=== PATIENT | male | born 1975 | race Caucasian/White ===

== ENCOUNTER 2020-01-18 08:53 | Observation (INO) ==
[2020-01-18] MEDS ORDERED: NORMAL SALINE 1,000 ML IV ONE ×2 (09:05→10:21)
[2020-01-18] MEDS ORDERED: ONDANSETRON HCL/PF 2 MG/ML VIAL IV ONE (09:05)
[2020-01-18 09:25] LABS: Hematocrit 44.2 % (42.0-52.0); Hemoglobin 15.1 gm/dL (13.5-18.0); Mean Cell Volume 90.6 fl (78-100); Mean Corpuscular Hemoglobin 30.9 pg (27-31); Mean Corpuscular Hgb Conc 34.2 g/dl (32-36); Mean Platelet Volume 11.1 fl (8-11.3); Neutrophil # 11.7 K/mm3 (1.3-6.0); Neutrophil % 85.5 % (42-75.0); Platelet Count 176 K/mm3 (150-450); Red Blood Count 4.88 M/mm3 (4.7-6.0); White Blood Count 13.6 K/mm3 (4.0-10.5)
[2020-01-18] MEDS ORDERED: LORazepam 2 MG/ML DISP.SYRIN IV ONE (09:26)
[2020-01-18] MEDS ORDERED: LORazepam 2 MG/ML DISP.SYRIN ONE (09:27)
[2020-01-18 09:43] LABS: ALT 53 U/L (19-67); AST 27 U/L (0-48); Albumin * 4.2 gm/dl (3.4-5.0); Alkaline Phosphatase * 124 U/L (50-170); Amylase * 207 U/L (25-115); Anion Gap 16.9 mmol/L (6.8-13.8); BUN/Creatinine Ratio 11.1 (9.0-21.6); Bilirubin, Total 0.3 mg/dL (0.0-1.1); Blood Urea Nitrogen 12 mg/dL (6-23); Ca. Corrected For Albumin 8.5 mg/dL (8.4-10.2); Carbon Dioxide 20.9 mmol/L (24-32.6); Chloride 109 mmol/L (97-106); Glucose * 123 mg/dL (70-110); Lipase 1468 U/L (73-393); Potassium 3.8 mmol/L (3.4-4.6); Sodium 143 mmol/L (132-142); Total Protein 7.9 gm/dL (6.2-8.2)
[2020-01-18 09:45] LABS: Troponin I Less than 0.017 ng/mL (0.00-0.10)
--- NOTE | 2020-01-18 09:47 | ERNOTE ---
Abdominal HPI - General Chief Complaint: General Assessment Time Seen by Provider: 01/18/20 09:00 Source: patient Exam Limitations: no limitations - Immun/Allergies/Home Medications Allergies/Adverse Reactions: Allergies cyclobenzaprine [From Flexeril] Adverse Reaction (Verified 01/18/20 12:50) irritable/agitated Home Medications: HOME MEDICATIONS NK 01/18/20 [Last Taken Unknown] - History of Present Illness Narrative: Patient is coming to the ER for nausea and vomiting. He states that he has not felt well in a few days, cannot really specify what did not feel well. 2 days ago he started with nausea, vomiting, generalized abdominal pain, he states that he has vomited nonstop, denies any diarrhea. Apparently has had multiple episodes like this in the past and has been diagnosed with celiac's disease. Is not aware of having had any gluten recently. He denies any other significant. His story is very vague and changing, cannot specify how frequently has episodes, maybe twice a month. He has been living in [place] for about a year and has not sought any medical care while here. He has had recurrent symptoms for about 7 years, has been evaluated twice by specialist while living in [place]. No other past medical history nor allergies, denies any chronic medication use. Timing: constant, getting worse Associated Symptoms: Present: nausea, swelling/mass in abdomen. Absent: diarrhea-gross blood, fever/chills, shortness of breath Prior Abdominal Problems: Present: similar symptoms Prior Treatment: Absent: recently seen, currently on antibiotics Review of Systems - Review of Systems Constitutional: Present: malaise. Absent: recent illness, fever ENT: Absent: ear pain, nose congestion, nasal drainage, sore throat Respiratory: Absent: shortness of breath, cough Cardiology: Absent: chest pain Gastrointestinal/Abdominal: Present: See HPI, nausea, vomiting, abdominal pain. Absent: diarrhea Genitourinary: Absent: frequency Musculoskeletal: Present: back pain Skin: Absent: rash Neurological: Absent: headache Medical History (Last Updated 01/18/20 @ 09:20 by Cat Dickson MD) Celiac disease Surgical History: Surgical History (Last Reviewed 01/18/20 @ 11:45 by Cassie Zarate RN) Hx of appendectomy Family History: Family History (Last Updated 01/18/20 @ 16:10 by Colbi Zarate, RN) Grandmother Crohn's disease IBS (irritable bowel syndrome) Other No pertinent family history Social History: (Last Updated 01/18/20 @ 09:20 by Cat Dickson MD) Tobacco: Smoking Status: Never smoker Alcohol: alcohol intake: never Physical Exam - Physical Exam General Appearance: Present: moderate distress, anxious Respiratory: Present: no respiratory distress, normal breath sounds, no accessory muscle use, lungs clear Cardiovascular/Chest: Present: regular rate, rhythm, no murmur Gastrointestinal/Abdominal: Present: normal bowel sounds, nondistended, tenderness - throughtout, max LUQ Back Exam: Present: normal inspection Extremity Exam: Present: no edema Neurological Exam: Present: alert, oriented Skin Exam: Present: normal color, diaphoresis Progress - Results and Orders Patient's Lab Results:: I have reviewed the patient's lab results. - Vital Signs Patient's Vital Signs:: I have reviewed the patient's vital signs. Vital Signs: Vital Signs 01/18/20 08:58 Pulse Rate 70 Respiratory Rate 29 H O2 Sat by Pulse Oximetry 98 - EKG EKG #1 EKG: NSR, nonspecific ST T wave changes EKG read: Interp. by me - X-Ray X-Ray #1 X-Ray: abdomen - normal bowel gas pattern Interpretation: Interp. by me - Progress/Reassessment Chief Complaint: General Assessment Progress Note-Subjective: 01/18/20 09:27 patient resting calmly in bed, after talking to him and attempting limited abdominal exam he starts to vomit again, states that he has 'tried to avoid having people touch my belly', can't give a reason why 01/18/20 09:42 patient now admits to smoking THC 01/18/20 10:09 patient resting, no vomiting 01/18/20 10:48 patient resting, no vomiting, abdomen soft, non tender discussed test results 01/18/20 11:09 patient tried one ice chip and is vomiting again discussed admission to hospital, patient agreed 01/18/20 11:12 discussed with herminia Morales to admit for observation for intractable vomiting and possible pancreatitis Departure Clinical Impression: Cyclical vomiting Pancreatitis, acute Qualifiers: Pancreatitis type: unspecified pancreatitis type Acute pancreatitis complication: unspecified Qualified Code(s): K85.90 - Acute pancreatitis without necrosis or infection, unspecified - Departure Disposition: Still a patient Condition: Stable
[2020-01-18] MEDS ORDERED: diphenhydrAMINE HCL 50 MG/ML VIAL IV ONE (10:28)
[2020-01-18] MEDS ORDERED: ONDANSETRON HCL/PF 2 MG/ML VIAL IV PRN (11:26)
[2020-01-18] MEDS ORDERED: ACETAMINOPHEN 325 MG TABLET PO PRN (12:28)
[2020-01-18] MEDS ORDERED: LIDOCAINE HCL 50 ML VIAL IM ONE (12:39)
--- NOTE | 2020-01-18 13:40 | HP ---
Chief Complaint - Chief Complaint Date of Service: 01/18/20 Time of Service: 13:19 Chief Complaint: I have had fatigue, chills, abdominal pain, and ongoing vomiting for 1 week. History of Present Illness: 44-year-old male with no a past medical history of celiac disease was evaluated in the ER for generalized abdominal pain and recurrent non-bloody vomiting that started several days ago. Patient reports he started not feeling well last Sunday when he felt fatigued and had lack energy, on he began to vomit nonstop and developed a generalized abdominal pain. He reports his symptoms worsened on Sunday and became unbearable by Sunday. Patient then decided to come to the ER to be evaluated. Upon questioning the patient admitted to smoking marijuana for more than 5 years and says he has been struggling with the symptoms for the same length of time. He denies using any other drugs or drinking alcohol. He was diagnosed with celiac disease 8 years ago but says the symptoms feel different than a celiac flare, he also denies any recent consumption of gluten-containing foods. He denies fever but says he occasionally gets chills since becoming ill, patient also denies contact with any ill persons. Medical History (Last Reviewed 01/18/20 @ 11:45 by Cassie Zarate RN) Celiac disease Surgical History: Surgical History (Last Reviewed 01/18/20 @ 11:45 by Cassie Zarate RN) Hx of appendectomy Family History: Family History (Last Reviewed 01/18/20 @ 11:45 by Cassie Zarate RN) Other No pertinent family history Social History: (Last Reviewed 01/18/20 @ 11:45 by Cassie Zarate RN) Tobacco: Smoking Status: Never smoker Alcohol: alcohol intake: never Substance Use: substance use type: marijuana counseling given: Yes Peds Patient Hx - Developmental: No Pertinent Hx Peds Patient Hx - Medical: No Pertinent Hx Peds Patient Hx - Cardiac/Respiratory: No Pertinent Hx Peds Patient Hx - Surgical: No Surgical History Patient History - Cancer: No Hx of Cancer Review Of Systems (GEN) - Review of Systems Generalized/Overall Review: Present: Chills, Malaise, Diaphoresis, Fatigue EENTM: Present: No Symptoms Reported Respiratory: Present: No Symptoms Reported Cardiac: Present: No Symptoms Reported Abdominal: Present: Nausea, Vomiting, Abdominal Pain Genitourinary: Present: No Symptoms Reported Musculoskeletal: Present: No Symptoms Reported Neurological: Present: No Symptoms Reported Skin: Present: No Symptoms Reported Endocrine: Present: No Symptoms Reported Allergies/Adverse Reactions: Allergies Allergy/AdvReac Type Severity Reaction Status Date / Time cyclobenzaprine AdvReac irritable/a Verified 01/18/20 12:50 [From Flexeril] gitated Home Medications: HOME MEDICATIONS NK 01/18/20 [Last Taken Unknown] Exam - Exam Vital Signs: Vital Signs - Last Taken Temp 37.0 C 01/18/20 11:45 Pulse 73 01/18/20 11:45 Resp 20 01/18/20 11:45 BP 139/87 01/18/20 11:45 Pulse Ox 99 01/18/20 11:45 Constitutional: Present: Alert, Oriented x3, Cooperative, Well developed, Well nourished, No distress ENT Exam: Present: normal ENT inspection, hearing grossly normal, pharynx normal, TMs normal Eye Exam: bilateral eye: normal inspection, PERRL, EOMI Neck: Present: non-tender, full range of motion, supple, normal inspection, trachea midline Back Exam: Present: normal inspection, no CVA tenderness, no vertebral tenderness Respiratory: Present: chest non-tender, lungs clear, normal breath sounds, no respiratory distress, no accessory muscle use Cardiovascular/Chest: Present: normal peripheral pulses, regular rate, rhythm, no chest tenderness, no edema, no gallop, no JVD, no murmur, no rub Peripheral Pulses: carotid (R): 4+, carotid (L): 4+, femoral (R): 4+, femoral (L): 4+, dorsalis-pedis (R): 4+, dorsalis-pedis (L): 4+ Abdomen: Present: soft, nontender, nondistended, no rebound tenderness, no hepatospenomegaly, no masses, other - Discomfort to palpation of epigastrium, no tenderness., hypoactive /Rectal: Present: Exam deferred Extremity: Present: normal range of motion, non-tender, normal inspection, no pedal edema, no calf tenderness, normal capillary refill Skin Exam: Present: normal color, warm/dry, no cyanosis Lymphatic: Present: no adenopathy Neurologic: Present: health care facilities inspector II-XII nml as tested, normal cerebellar test, no motor/sensory deficits, alert, normal mood/affect, oriented x 3 Appearance: Present: appropriate appearance, appropriate insight, neat, no memory impairment Eye contact: Present: cooperative, good eye contact, normal speech Thoughts: Present: normal thought pattern, no apparent hallucination Diagnostic Studies: Abnormal Lab Results 01/18/20 01/18/20 Range/Units : 09:20 WBC 13.6 H (4.0-10.5) K/mm3 Immature Gran # (Auto) 0.05 H (0.000-0.0310) K/mm3 Neutrophils % 85.5 H (42-75.0) % Lymphocytes % 9.5 L (20-51) % Neutrophils # 11.7 H (1.3-6.0) K/mm3 Lymphocytes # 1.29 L (1.5-3.5) k/mm3 Sodium 143 H (132-142) mmol/L Plasma Sodium 143 H (130-142) mmol/L Chloride 109 H (97-106) mmol/L Carbon Dioxide 20.9 L (24-32.6) mmol/L Anion Gap 16.9 H (6.8-13.8) mmol/L Random Glucose 123 H (70-110) mg/dL Amylase 207 H (25-115) U/L Lipase 1468 H (73-393) U/L Laboratory Results WBC 13.6 K/mm3 (4.0-10.5) H 01/18/20 09:20 RBC 4.88 M/mm3 (4.7-6.0) 01/18/20 09:20 Hgb 15.1 gm/dL (13.5-18.0) 01/18/20 09:20 Hct 44.2 % (42.0-52.0) 01/18/20 09:20 MCV 90.6 fl (78-100) 01/18/20 09:20 MCH 30.9 pg (27-31) 01/18/20:20 MCHC 34.2 g/dl (32-36) 01/18/20 09:20 RDW 13.0 % (11.5-14.0) 01/18/20 09:20 Plt Count 176 K/mm3 (150-450) 01/18/20 09:20 MPV 11.1 fl (8-11.3) 01/18/20 09:20 Immature Gran % (Auto) 0.40 % (0.001-0.429) 01/18/20 09:20 Immature Gran # (Auto) 0.05 K/mm3 (0.000-0.0310) H 01/18/20 09:20 Neutrophils % 85.5 % (42-75.0) H 01/18/20 09:20 Lymphocytes % 9.5 % (20-51) L 01/18/20 09:20 Monocytes % 3.2 % (0.0-9) 01/18/20 09:20 Eosinophils % 1.0 % (0.0-3.0) 01/18/20 09:20 Basophils % 0.4 % (0.0-1.0) 01/18/20 09:20 Nucleated RBC % 0.0 k/mm3 (0-1) 01/18/20 09:20 Neutrophils # 11.7 K/mm3 (1.3-6.0) H 01/18/20 09:20 Lymphocytes # 1.29 k/mm3 (1.5-3.5) L 01/18/20 09:20 Monocytes # 0.4 k/mm3 (0.0-1.0) 01/18/20 09:20 Eosinophils # 0.1 k/mm3 (0.0-0.7) 01/18/20 09:20 Absolute Basophils 0.1 k/mm3 (0.0-0.1) 01/18/20 09:20 Sodium 143 mmol/L (132-142) H 01/18/20 09:20 Plasma Sodium 143 mmol/L (130-142) H 01/18/20 09:20 Potassium 3.8 mmol/L (3.4-4.6) 01/18/20 09:20 Chloride 109 mmol/L (97-106) H 01/18/20 09:20 Carbon Dioxide 20.9 mmol/L (24-32.6) L 01/18/20 09:20 Anion Gap 16.9 mmol/L (6.8-13.8) H 01/18/20 09:20 BUN 12 mg/dL (6-23) 01/18/20 09:20 Creatinine 1.08 mg/dL (0.4-1.4) 01/18/20 09:20 Est GFR (Non-Af Amer) 79 mL/min (60-130) 01/18/20 09:20 BUN/Creatinine Ratio 11.1 (9.0-21.6) 01/18/20 09:20 Random Glucose 123 mg/dL (70-110) H 01/18/20 09:20 Calcium 9.0 mg/dL (7.9-10.9) 01/18/20 09:20 Calcium Adj for Albumin 8.5 mg/dL (8.4-10.2) 01/18/20 09:20 Total Bilirubin 0.3 mg/dL (0.0-1.1) 01/18/20 09:20 AST 27 U/L (0-48) 01/18/20 09:20 ALT 53 U/L (19-67) 01/18/20 09:20 Alkaline Phosphatase 124 U/L (50-170) 01/18/20 09:20 Troponin I Less than 0.017 ng/mL (0.00-0.10) 01/18/20 09:20 C-Reactive Prot, Quant Less than 0.2 mg/dL (0.0-0.9) 01/18/20 09:20 Total Protein 7.9 gm/dL (6.2-8.2) 01/18/20 09:20 Albumin 4.2 gm/dl (3.4-5.0) 01/18/20 09:20 Amylase 207 U/L (25-115) H 01/18/20 09:20 Lipase 1468 U/L (73-393) H 01/18/20 09:20 Assessment/Plan - Narrative Narrative: Patient was evaluated and medical chart was reviewed and decision to admit for diagnosis of acute pancreatitis and cyclical vomiting was made. He was admitted to [facility] hoyt where he will be left n.p.o. and treated with aggressive IV hydration with potassium and IV antibiotics given the patient's leukocytosis and reported chills. At the moment he appears comfortable after he was treated with antiemetics and anxiolytics in the ER. He only reports mild abdominal discomfort and says he feels better than when he arrived. Patient's labs on admission demonstrated elevated sodium and chloride most likely due to dehydration secondary to recurrent vomiting, this should improve with IV hydration. He was also found to have a significantly elevated lipase and amylase, follow-up lab was ordered for tomorrow morning to reevaluate. After the patient arrived to his room he admitted to smoking marijuana his whole life and concede that the cyclical vomiting might be related to the extensive marijuana use. He was counseled on refraining from smoking marijuana to prevent recurrence of the symptoms and other complications, he said he will try to stop. We will reevaluate him in the morning. - Assessment/Plan (1) Dehydration with hypernatremia Problem: Acute (2) Pancreatitis, acute Problem: Acute Qualifiers: Pancreatitis type: unspecified pancreatitis type Acute pancreatitis complication: unspecified Qualified Code(s): K85.90 - Acute pancreatitis without necrosis or infection, unspecified (3) Cyclical vomiting Problem: Acute (4) Marijuana smoker, continuous Problem: Chronic
[2020-01-18] MEDS: PANTOPRAZOLE SODIUM 40 MG in NORMAL SALINE 100 ML IV SCH (13:43)
[2020-01-18] MEDS: POTASSIUM CHLORIDE 20 MEQ in NORMAL SALINE 1,000 ML IV SCH ×2 (15:48→20:57)
[2020-01-18 17:38] LABS: Urine Appearance Clear (CLEAR); Urine Bilirubin Negative (NEGATIVE); Urine Blood Negative /ul (NEGATIVE); Urine Color Yellow; Urine Ketone Negative (NEGATIVE); Urine Nitrite Negative (NEGATIVE); Urine Protein Negative (NEGATIVE); Urine Urobilinogen Normal (NORMAL)
[2020-01-18 17:39] LABS: Urine Bacteria None Seen; Urine RBC 0-5 /hpf (0-5); Urine WBC 0-5 /hpf (0-5)
[2020-01-18 17:47] LABS: Cocaine Ur Negative (NEGATIVE); Urine Barbiturate Negative (NEGATIVE); Urine Benzodiazepines Negative (NEGATIVE); Urine Opiates Negative (NEGATIVE); Urine PCP Negative (NEGATIVE)
[2020-01-18 17:50] LABS: Urine THC Positive (NEGATIVE)
[2020-01-19] MEDS: PANTOPRAZOLE SODIUM 40 MG in NORMAL SALINE 100 ML IV SCH (00:27)
[2020-01-19] MEDS: POTASSIUM CHLORIDE 20 MEQ in NORMAL SALINE 1,000 ML IV SCH ×2 (02:05→07:18)
[2020-01-19 07:53] LABS: Albumin * 3.4 gm/dl (3.4-5.0); Anion Gap 10.4 mmol/L (6.8-13.8); BUN/Creatinine Ratio 7.6 (9.0-21.6); Bilirubin, Total 0.6 mg/dL (0.0-1.1); Ca. Corrected For Albumin 8.5 mg/dL (8.4-10.2); Calcium * 8.3 mg/dL (7.9-10.9); Carbon Dioxide 23.5 mmol/L (24-32.6); Potassium 3.9 mmol/L (3.4-4.6); Total Protein 6.7 gm/dL (6.2-8.2)
[2020-01-19] MEDS ORDERED: amLODIPine BESYLATE 5 MG TABLET PO ONE (11:22)
--- NOTE | 2020-01-19 11:31 | DS ---
(1) Dehydration with hypernatremia Problem: Resolved (2) Pancreatitis, acute Problem: Resolved Qualifiers: Pancreatitis type: unspecified pancreatitis type Acute pancreatitis complication: unspecified Qualified Code(s): K85.90 - Acute pancreatitis without necrosis or infection, unspecified (3) Cyclical vomiting Problem: Resolved (4) Marijuana smoker, continuous Problem: Chronic Date of Discharge:: 01/19/20 Hospital Course: 44-year-old male admitted for acute pancreatitis and cyclical vomiting was admitted to [facility] for observation after the patient was diagnosed with acute pancreatitis at our ER. Patient had significantly elevated pancreatic enzymes and epigastric discomfort. Therefore he was placed on n.p.o. and was treated with aggressive IV hydration and medications to control pain. This morning he reports his nausea and vomiting has completely resolved and labs demonstrate resolution of his elevated pancreatic enzyme levels. Therefore decision to discharge patient home with instructions to resume a low-fat diet was made. He was also reminded to avoid marijuana use which might of been the cause of his cyclical vomiting which possibly led to his acute pancreatitis. He agreed to the instructions. Procedures Performed: none Results and Findings: Lab Pending Results 01/18/20 09:20: WBC 13.6 H, RBC 4.88, Hgb 15.1, Hct 44.2, MCV 90.6, MCH 30.9, MCHC 34.2, RDW 13.0, Plt Count 176, MPV 11.1, Immature Gran % (Auto) 0.40, Immature Gran # (Auto) 0.05 H, Neutrophils % 85.5 H, Lymphocytes % 9.5 L, Monocytes % 3.2, Eosinophils % 1.0, Basophils % 0.4, Nucleated RBC % 0.0, Neutrophils # 11.7 H, Lymphocytes # 1.29 L, Monocytes # 0.4, Eosinophils # 0.1, Absolute Basophils 0.1 01/18/20 09:20: Sodium 143 H, Plasma Sodium 143 H, Potassium 3.8, Chloride 109 H, Carbon Dioxide 20.9 L, Anion Gap 16.9 H, BUN 12, Creatinine 1.08, Est GFR (Non-Af Amer) 79, BUN/Creatinine Ratio 11.1, Random Glucose 123 H, Calcium 9.0, Calcium Adj for Albumin 8.5, Total Bilirubin 0.3, AST 27, ALT 53, Alkaline Phosphatase 124, Troponin I Less than 0.017, C-Reactive Prot, Quant Less than 0.2, Total Protein 7.9, Albumin 4.2, Amylase 207 H, Lipase 1468 H 01/18/20 17:17: Urine Color Yellow, Urine Appearance Clear, Urine pH 6.0, Ur Specific [place] 1.010, Urine Protein Negative, Urine Glucose (UA) Negative, Urine Ketones Negative, Urine Blood Negative, Urine Nitrate Negative, Urine Bilirubin Negative, Urine Urobilinogen Normal, Ur Leukocyte Esterase Negative, Urine RBC 0-5, Urine WBC 0-5, Ur Epithelial Cells 0-5, Urine Bacteria None seen, Urine Culture Comments No culture indicated 01/18/20 17:17: Urine Opiates Screen Negative, Barbiturate Screen Negative, Ur Phencyclidine Scrn Negative, Urine Amphetamine Negative, U Benzodiazepines Scrn Negative, Urine Cocaine Screen Negative, Urine Marijuana (THC) Positive H 01/19/20 07:15: Sodium 141, Plasma Sodium 141, Potassium 3.9, Chloride 111 H, Carbon Dioxide 23.5 L, Anion Gap 10.4, BUN 8, Creatinine 1.05, Est GFR (Non-Af Amer) 81, BUN/Creatinine Ratio 7.6 L, Random Glucose 97, Calcium 8.3, Calcium Adj for Albumin 8.5, Total Bilirubin 0.6, AST 22, ALT 38, Alkaline Phosphatase 96, Total Protein 6.7, Albumin 3.4, Amylase 57, Lipase 74 Discharge Location: Home Disposition: Home self-care Condition: Good Face to Face Encounter completed per [facility] Guidelines: No Discharge Activity: Activity as tolerated Discharge Diet: Low fat/chol Prescriptions (Any new or edited meds): Ondansetron HCl [Zofran] 4 mg PO Q4H PRN #10 tab PRN Reason: Nausea And Vomiting Transmission Status: Pending to [facility] Complete Home Medications List: Complete Home Medication List: Ondansetron HCl [Zofran] 4 mg PO Q4H PRN #10 tab 01/19/20 Forms: Patient Portal Registration
[2020-01-19 11:49] VITALS: BP 153/88
== END 2020-01-19 12:06 | disposition home or self-care (01) ==
LOC: MS 08:53 → ER 08:53 → MS 11:45
PROVIDERS: ADMIT Family Medicine; ATTEND Family Medicine